=== PATIENT | female | born 1960 | race Caucasian/White ===

== ENCOUNTER 2020-10-07 13:55 | Outpatient (REF) | payer OTHER, SELFPAY ==
[2020-10-07 15:31] LABS: Blood Urea Nitrogen 14 mg/dL (9-16); Estimated Glomerular Filt Rate 47
== END 2020-10-07 13:56 | disposition home or self-care (01) ==
LOC: HO.LAB 13:55
PROVIDERS: Visit Provider Psychiatry & Neurology Neurology
DX: G35 Multiple sclerosis (principal)
CPT/HCPCS: 36415; 82565; 84520

== ENCOUNTER 2020-10-28 12:24 | Outpatient (REF) | payer OTHER, SELFPAY ==
--- NOTE | ~2020-10-28 | MR_ITS ---
EXAMINATION: MR BRAIN WITHOUT AND WITH CONTRAST CLINICAL INFORMATION: Difficulty forming words. Headaches. Tripping. COMPARISON: None. TECHNIQUE: Multiplanar, multisequence imaging of the brain was performed before and after the intravenous administration of 8.5 mL of Gadavist. FINDINGS: No diffusion abnormalities are identified to suggest an acute infarct. The ventricles are normal in size. No mass effect or midline shift is seen. There is a solitary subcentimeter focus of T2 hyperintense signal change in the left singh radiata which is nonspecific. Minimal white matter signal changes also noted in the left periatrial white matter. No extra-axial fluid collections are seen. The brainstem and cerebellum are normal. There is no abnormal parenchymal or leptomeningeal enhancement. The orbits and pituitary axis structures appear normal. The gradient refocused acquisition demonstrates no pathologic magnetic susceptibility artifact to indicate underlying acute or chronic blood products. The craniovertebral junction, marrow signal, and midline structures are normal. The major intracranial flow voids at the level of the [place] are preserved. The dural venous sinus flow voids are maintained. The mastoid air cells and paranasal sinuses are well aerated. Anterior cervical fusion hardware partially visualized at the C3-C4 level. MR/MR head/brain wo/w con IMPRESSION: Mild nonspecific white matter signal changes. No abnormal enhancement. No acute process.
== END 2020-10-28 12:25 | disposition home or self-care (01) ==
LOC: HO.MRI 12:24
PROVIDERS: Visit Provider Psychiatry & Neurology Neurology
DX: G35 Multiple sclerosis (principal)
CPT/HCPCS: 70553; A9585

== ENCOUNTER 2025-07-16 13:34 | Outpatient (AMB) | payer OTHER, SELFPAY ==
--- NOTE | 2025-07-16 13:31 | A.PHYSOV ---
Intake Visit Reasons: 3M FUV Intake Note: Patient is a 64 year old female in office for her 3 month medication management visit. Motor Electrician Required: No Allergies aspirin Allergy (Severe, Verified 07/16/25 13:36) ANAPHALAXIS clarithromycin Allergy (Mild, Verified 07/16/25 13:36) RASH codeine Allergy (Mild, Verified 07/16/25 13:36) RASH metaxalone Allergy (Mild, Verified 07/16/25 13:36) RASH morphine Allergy (Mild, Verified 07/16/25 13:36) RASH nabumetone Allergy (Mild, Verified 07/16/25 13:36) RASH NSAIDS (Non-Steroidal Anti-Inflamma Allergy (Mild, Verified 07/16/25 13:36) RASH Penicillins Allergy (Mild, Verified 07/16/25 13:36) RASH sumatriptan Allergy (Mild, Verified 07/16/25 13:36) RASH HPI Comments Details: History of Present Illness The patient is a 64 year old female presenting for a follow-up visit for chronic pain involving her entire body, with a history of cervical fusion. She has previously tried duloxetine and pregabalin but was unable to tolerate either medication due to side effects. She is currently taking gabapentin 600 mg three times a day, which provides mild relief. The patient is contracted for tramadol 50 mg, and her dose was increased to six tablets a day during her last visit. She has a history of stage 3 chronic renal disease, which prevents her from taking anti-inflammatory medications. She reports intermittent difficulties with her legs not responding as desired. At her last appointment on April 16, 2025, she was awaiting a psychological evaluation for a spinal cord stimulator trial. She has since completed the evaluation and received insurance approval for the procedure. Pain Description - Pain location: The patient reports chronic pain involving her entire body. - Associated symptoms: The patient reports difficulties with her legs, stating they sometimes do not listen to what she wants them to do. Results - Tests and Diagnostics: A psychological evaluation for a spinal cord stimulator trial has been completed, and she has received approval from her insurance. [facility] Medical History (Updated 07/16/25 @ 13:44 by Alvin Lund DO) Fibromyalgia Chronic pain syndrome Surgical History History of neck surgery (Unknown) History of hip replacement (Unknown) History of (Unknown) History of back surgery (Unknown) Social History (Updated 07/16/25 @ 13:37 by Rita Corley MA) Household Members: None Alcohol intake: current Alcohol intake frequency: does not drink Patient Tobacco Use Status: Current everyday Tobacco user Cigarette Packs Per Day: 1 Current occupational status: disabled Review of Systems Narrative Review of Systems - General: Reports chronic pain involving her entire body. - Neurological: Reports difficulties with her legs, stating they sometimes do not listen to her commands. She denies any change in bowel bladder habits. She denies any fever or chills. Physical Exam Exam Exam: Physical Exam Patient appears to be in no acute distress. Gait was slow without antalgia. Lumbar range of motion was restricted in extension side bending. Cervical range of motion was restricted. Neurological examination was nonfocal. She demonstrated no upper motor neuron signs. Heel walk and toe walk were not tested. She ambulates with a walker. Assessment & Plan Assessment & Plan (1) Chronic pain syndrome: Code(s): G89.4 - Chronic pain syndrome Category: Medical (2) Fibromyalgia: Code(s): M79.7 - Fibromyalgia Category: Medical Plan Pain Management - Analgesia: The patient reports mild relief with gabapentin 600 mg three times a day and states that the increased dose of tramadol to six tablets a day is helping. - Adverse Effects: She was unable to tolerate duloxetine and pregabalin due to side effects. - Activities of Daily Living: She reports difficulties with her legs, which sometimes do not follow her commands. - Aberrant Drug Related Behaviors: The patient is contracted for tramadol. Plan Patient was informed and verbally consented to the use of an ambient scribe for clinic note documentation during this visit. 1. Chronic Pain Syndrome The patient reports the increased tramadol dose of six 50 mg tablets per day is helping. I will check if a refill is due and will send it in if needed; otherwise, the patient will call as usual for a refill. She will continue gabapentin 600 mg three times daily. The patient is pursuing a spinal cord stimulator trial and was advised to contact Dr. Stark at [facility] to schedule it, as she has already completed her psychological evaluation and received insurance approval. A follow-up is scheduled in three months. 2. Chronic Kidney Disease, Stage 3 The patient will continue to avoid anti-inflammatory medications due to her stage 3 chronic renal disease. Discussion Notes I discussed the patient's chronic pain management and medication regimen. The patient confirmed that the increased dose of tramadol to six tablets daily is effective. I informed her that I would check the status of her prescription and send a refill if due; otherwise, she should call the office when needed. I clarified that the spinal cord stimulator trial is performed by Dr. Stark at [facility] and that she needs to contact them to schedule it, as her psychological evaluation and insurance approval are complete. We agreed she will follow up in my office in three months. Patient Instructions - Continue taking gabapentin 600 mg three times a day for your pain. - Continue taking tramadol up to six times a day as needed for pain, as this seems to be helping you. - We will check if your tramadol prescription is due for a refill and send one to your pharmacy if it is. If not, please call us when you need a refill. - You will need to call Dr. Stark's office at [facility] to schedule your spinal cord stimulator trial. - Remember not to take any anti-inflammatory medications like ibuprofen or naproxen because of your kidney condition. - Please schedule a follow-up appointment with our office in about three months. Medications: New tramadol Partial fill upon request 50 mg PO Q4H PRN 168 tabs 0RF pain 28 days G89.4 - Chronic pain syndrome, M79.7 - Fibromyalgia Coding Level of Care Code Est Pt Level 3 (19959) Complex visit Add On G2211 Diagnoses Chronic pain syndrome G89.4 Fibromyalgia M79.7
== END 2025-07-16 13:53 | disposition home or self-care (01) ==
LOC: HO.HPHYS 13:34
PROVIDERS: PCP Nurse Practitioner Family; Visit Provider Physical Medicine & Rehabilitation
DX: G89.4 Chronic pain syndrome (principal); M79.7 Fibromyalgia
CPT/HCPCS: 99213; G2211

== ENCOUNTER → 2025-07-16 13:34 | Outpatient (BNVA) | payer OTHER, SELFPAY | PROVIDERS: PCP Nurse Practitioner Family; Visit Provider Physical Medicine & Rehabilitation | DX: G89.4 Chronic pain syndrome (principal); M79.7 Fibromyalgia | CPT/HCPCS: 99212 ==